=== PATIENT | female | born 1960 | race Caucasian/White ===

== ENCOUNTER → 2019-10-21 14:12 | Outpatient (BNVA) | payer BC, SELFPAY | PROVIDERS: Family Provider Family Medicine; PCP Family Medicine; Visit Provider Nurse Practitioner Family | DX: Z11.59 Encounter for screening for other viral diseases (principal) | CPT/HCPCS: 87635 ==

== ENCOUNTER → 2020-01-21 11:20 | Outpatient (BNVA) | payer OTHER, BC, SELFPAY | PROVIDERS: Family Provider Family Medicine; PCP Family Medicine; Visit Provider Nurse Practitioner Family | DX: Z11.59 Encounter for screening for other viral diseases (principal) | CPT/HCPCS: 87635 ==

== ENCOUNTER 2020-02-19 11:06 | Outpatient (CLI) | payer BC, SELFPAY ==
--- NOTE | 2020-02-19 11:11 | MM_ITS ---
WS: [id number] BILATERAL DIGITAL SCREENING MAMMOGRAM WITH CAD CLINICAL INFORMATION: SCREENING HISTORY: Screening mammogram. No current complaints. COMPARISON: January 07, 2019 TECHNIQUE: Bilateral CC and MLO. Spot compression views upper outer right breast. FINDINGS: Bilateral breast implants. Breast implants are mammographically intact. The breast are composed of extremely dense tissue, which can limit the detection of small underlying mass lesions. Spot compression views upper outer right breast are normal. No suspicious focal mass, a symmetry, calcifications, or architectural distortion. No evidence of malignancy. MM/[id number] IMPRESSION: BI-RADS: 2-Benign FOLLOW UP: 1 Year Follow-up Recommend return to annual screening mammography.
== END 2020-02-19 11:07 | disposition home or self-care (01) ==
LOC: RADSHAW 11:10
PROVIDERS: Family Provider Family Medicine; PCP Family Medicine; Visit Provider Obstetrics & Gynecology
DX: Z12.31 Encounter for screening mammogram for malignant neoplasm of breast (principal)
CPT/HCPCS: 77067

== ENCOUNTER → 2021-03-21 14:33 | Outpatient (BNVA) | payer BC, SELFPAY | PROVIDERS: Family Provider Family Medicine; PCP Family Medicine; Visit Provider Obstetrics & Gynecology | DX: R30.0 Dysuria (principal) | CPT/HCPCS: 81000 ==

== ENCOUNTER → 2021-03-28 09:00 | Outpatient (BNVA) | payer BC, SELFPAY | PROVIDERS: Family Provider Family Medicine; PCP Family Medicine; Visit Provider Obstetrics & Gynecology | DX: Z00.00 Encounter for general adult medical examination without abnormal findings (principal); Z12.4 Encounter for screening for malignant neoplasm of cervix | CPT/HCPCS: 80061; 83036; 84443; 87624 ==

== ENCOUNTER → 2021-03-29 14:39 | Outpatient (BNVA) | payer BC, SELFPAY | PROVIDERS: Family Provider Family Medicine; PCP Family Medicine; Visit Provider Obstetrics & Gynecology | DX: Z00.00 Encounter for general adult medical examination without abnormal findings (principal); R79.89 Other specified abnormal findings of blood chemistry | CPT/HCPCS: 84439; 84481 ==

== ENCOUNTER 2021-07-04 13:28 | Outpatient (CLI) | payer BC, SELFPAY ==
--- NOTE | 2021-07-04 13:35 | MM_ITS ---
WS: [id number] VIEWS: MLO and CC views both breasts. Breast implant displacement MLO and CC views also obtained.. 3 D digital tomosynthesis is also included in this exam. Comparison made with prior exam of 11/09/2015, 11/10/2016, 12/11/2017, 01/07/2019, and 02/19/2020.. Findings: There was no sign of mass, architectural distortion or suspicious calcification in either breast. Damien ateral breast implants are stable in appearance The breasts are very dense MM/[place] [id number] Impression: BI-RADS: 2-Benign FOLLOW-UP: 1 Year Follow-up This mammogram was also analyzed by the Computer Aided Detection System [employer].
== END 2021-07-04 13:29 | disposition home or self-care (01) ==
LOC: RADSHAW 13:30
PROVIDERS: PCP Family Medicine; Visit Provider Obstetrics & Gynecology
DX: Z12.31 Encounter for screening mammogram for malignant neoplasm of breast (principal)
CPT/HCPCS: 77063; 77067

== ENCOUNTER → 2021-07-22 07:42 | Outpatient (BNVA) | payer BC, SELFPAY | PROVIDERS: PCP Family Medicine; Visit Provider Family Medicine | DX: R79.89 Other specified abnormal findings of blood chemistry (principal); D58.2 Other hemoglobinopathies | CPT/HCPCS: 83036; 84443 ==

== ENCOUNTER 2021-09-07 05:47 | Day surgery (SDC) | payer BC, SELFPAY ==
[2021-09-05 17:38] VITALS: BMI 18.1
[2021-09-07 06:10] VITALS: BP 116/73; PULSE 80; RESP 18; TEMP 36.8; O2SAT 99
[2021-09-07] MEDS: sodium chloride 0.9% 1,000 ML 30 ML IV (06:26)
--- NOTE | 2021-09-07 06:55 | ANES.PREANE2 ---
Documented by User: Marvin Moss Jr, CHOPPED STRAND OPERATOR 09/07/21 06:58 Pre-Anesthetic Assessment Height/Weight: Height 1.66 m Weight 50.349 kg Temp Pulse Resp BP Pulse Ox 98.2 F 80 18 116/73 99 09/07/21 06:10 09/07/21 06:10 09/07/21 06:10 09/07/21 06:10 09/07/21 06:10 Preop Diagnosis: diagnostic Operation Date: 09/07/21 07:00 Proposed Procedures p Colonoscopy 40340/z12.11(Not Applicable) - Shaun Rivero MD Familial anesthetic complications: none Was Beta Nayla taken within 24 hours: N/A Was Clonidine taken within 24 hours: N/A Last intake: Intake Last Liquid Date 09/06/21 Last Liquid Time 23:50 Last Solid Date 09/05/21 Last Solid Time 21:30 Last Intake: 23:30 Social No alcohol and No tobacco Exam alert, oriented x 3, clear to auscultation bilaterally and regular rate & rhythm Airway Submandibular: within normal limits Cervical ROM: within normal limits Mallampati: Class I Dentition: full Pulmonary None reported CV/HEM None reported None reported Hepatic None reported GI None reported Metabolic None reported Musc/skel Lower Back Pain, Osteoarthritis/DJD and Scoliosis Neuropsych None reported Anesthetic Plan ASA status: 1 Anesthesia: MAC Risk of > 500 ml blood loss (7ml/kg in children): No Medications/Allergies Home Medications Medication Instructions Recorded Confirmed Last Taken Type vitamin d3, calcium, magnesium, 2 tab PO DAILY 03/08/20 09/07/21 09/05/21 History vitamin c conjugated estrogens 0.625 mg/gram 0.625 mg VAGINAL .COMPLEX #30 g 08/10/21 09/07/21 09/05/21 Rx vaginal cream (Premarin) fluticasone propionate 50 1 spray INTRANASAL DAILY 08/10/21 09/07/21 09/06/21 History mcg/actuation nasal spray,suspension (Flonase Allergy Relief) Allergies Allergy/AdvReac Type Severity Reaction Status Date / Time No Known Allergies Allergy Verified 09/07/21 06:06 Current Medications Generic Name Dose Route Start Last Admin Trade Name Freq PRN Reason Stop Dose Admin Sodium Chloride 1,000 mls @ 30 mls/hr 09/07/21 06:00 09/07/21 06:26 Sodium Chloride 0.9% IV 09/08/21 05:59 30 mls/hr .Q24H FARNAZ Administration PFSH Anesthesia Medical History No pertinent past medical history Denies diabetes, asthma, hypertension, seizures, DVT/PE PCP: Dr. Funk Surgical History (Updated 09/07/21 @ 07:26 by Shaun Rivero MD) History of back surgery buldging disc---April 2016----in [facility]. History of colonoscopy (09/07/21) normal - 10 years S/P breast augmentation Saline in 2009 S/P LEEP Done for abnormal Pap smear in 2006. Family History Mother Hyperlipidemia Grandfather Diabetes paternal Hypertension paternal Grandmother Stroke paternal Denies family history of Colon cancer Ovarian cancer Heart disease Breast cancer Uterine cancer Thyroid condition Data Anesthesia Cardiac Studies: No Data to Display
--- NOTE | 2021-09-07 07:08 | P.HP_ITS ---
Same Day Surgery H&P Indication for Procedure/HPI DATE OF PROCEDURE: September 07, 2021 CHIEF COMPLAINT/INDICATIONFOR SURGICAL PROCEDURE: colonoscopy PREOP DIAGNOSIS: diagnostic PLANNED PROCEDURE: Operation Date: 09/07/21 07:00 Proposed Procedures p Colonoscopy 40295/z12.11(Not Applicable) - Shaun Rivero MD Medications/Allergies* Home Medications Medication Instructions Recorded Confirmed Type vitamin d3, calcium, magnesium, 2 tab PO DAILY 03/08/20 09/07/21 History vitamin c fluticasone propionate 50 1 spray INTRANASAL DAILY 08/10/21 09/07/21 History mcg/actuation nasal spray,suspension (Flonase Allergy Relief) Allergies/Adverse Reactions Allergy/AdvReac Type Severity Reaction Status Date / Time No Known Allergies Allergy Verified 09/07/21 06:06 Current Medications: Generic Name Dose Route Start Last Admin Trade Name Freq PRN Reason Stop Dose Admin Sodium Chloride 1,000 mls @ 30 mls/hr 09/07/21 06:00 09/07/21 06:26 Sodium Chloride 0.9% IV 09/08/21 05:59 30 mls/hr .Q24H FARNAZ Administration Pertinent History/Comorbid Conditions* Medical History (Updated 04/01/21 @ 09:59 by Josephine Marcelo MD) No pertinent past medical history Denies diabetes, asthma, hypertension, seizures, DVT/PE PCP: Dr. Funk Surgical History (Updated 07/05/21 @ 11:22 by Shaun Rivero MD) History of back surgery buldging disc---April 2016----in [facility]. History of colonoscopy S/P breast augmentation Saline in 2009 S/P LEEP Done for abnormal Pap smear in 2006. Family History (Updated 03/28/21 @ 08:01 by Noelle Oro RN) Diabetes Grandfather paternal Hyperlipidemia Mother Hypertension Grandfather paternal Stroke Grandmother paternal Denies family history of Colon cancer Ovarian cancer Heart disease Breast cancer Uterine cancer Thyroid condition Pertinent Exam Findings alert, oriented x 3 and regular rate & rhythm Recommendations Surgery/Procedure today Coding Level of Care Code Acute Cardiology Nurse for Chg Janusz
[2021-09-07 07:31] VITALS: BP 90/42; PULSE 66; RESP 18; TEMP 36.5; O2SAT 99
[2021-09-07 07:40] VITALS: BP 108/64; PULSE 66; RESP 18; O2SAT 100
--- NOTE | 2021-09-07 12:16 | ANE.PACU2 ---
Inpatient post-anesthesia follow up: Airway intact: Yes Vital signs: Temperature 97.7 F Pulse Rate 66 Respiratory Rate 18 Blood Pressure 108/64 Pulse Oximetry 100 Oxygen Delivery Me thod Room Air Oxygen Flow Rate 4 Fraction of Inspir ed Oxygen Hydration adequate: Yes Nausea and vomiting: No Pain level: 1 Mental status: Baseline
== END 2021-09-07 08:04 | disposition home or self-care (01) ==
PROVIDERS: PCP Family Medicine; Visit Provider Surgery
PROC: 0DJD8ZZ Inspection of Lower Intestinal Tract, Via Natural or Artificial Opening Endoscopic (ICD-10-PCS; CPT 45378; principal; 2021-09-07 07:00)
DX: Z12.11 Encounter for screening for malignant neoplasm of colon (principal); K64.8 Other hemorrhoids; M19.90 Unspecified osteoarthritis, unspecified site
CPT/HCPCS: 45378; J2704; J7030

== ENCOUNTER → 2022-05-22 08:20 | Outpatient (BNVA) | payer BC, SELFPAY | PROVIDERS: PCP Family Medicine; Visit Provider Obstetrics & Gynecology | DX: Z00.00 Encounter for general adult medical examination without abnormal findings (principal); Z79.899 Other long term (current) drug therapy | CPT/HCPCS: 80053; 80061; 82465; 83036; 83721; 84443; 85025 ==

== ENCOUNTER 2022-07-12 12:54 | Outpatient (CLI) | payer BC, SELFPAY ==
--- NOTE | 2022-07-12 13:04 | MM_ITS ---
WS: [id number] BILATERAL 3D TOMOSYNTHESIS DIGITAL SCREENING MAMMOGRAPHY WITH CAD CLINICAL INFORMATION: SCREENING HISTORY: Screening mammogram. No current complaints. COMPARISON: July 04, 2021 TECHNIQUE: Bilateral CC and MLO views. FINDINGS: Bilateral breast implants appear intact. The breasts are composed of heterogeneous fibroglandular density tissue, which can limit the detectio n of small underlying mass lesions. No suspicious mass, asymmetry, calcifications, or architectural d istortion. No evidence of malignancy. Coarse punctate calcification RIGHT breast. MM/[place] [id number] IMPRESSION: BI-RADS: 2-Benign FOLLOW UP: 1 Year Follow-up Recommend return to annual screening mammography.
== END 2022-07-12 12:55 | disposition home or self-care (01) ==
LOC: RAD 12:58
PROVIDERS: PCP Family Medicine; Visit Provider Obstetrics & Gynecology
DX: Z12.31 Encounter for screening mammogram for malignant neoplasm of breast (principal)
CPT/HCPCS: 77063; 77067

== ENCOUNTER → 2023-06-29 15:05 | Outpatient (BNVA) | payer OTHER, SELFPAY | PROVIDERS: Visit Provider Nurse Practitioner Women's Health | DX: R30.0 Dysuria (principal) | CPT/HCPCS: 84315; 87077; 87086; 87184 ==

== ENCOUNTER 2023-07-16 12:46 | Outpatient (CLI) | payer OTHER, SELFPAY ==
--- NOTE | 2023-07-16 13:00 | XR_ITS ---
WS: [id number] DEXA (DUAL ENERGY X-RAY ABSORPTIOMETRY) Bone mineral density was performed using a [employer] machine. HISTORY: Z78.0 - Asymptomatic menopausal state COMPARISON: None available. Lumbar spine BMD (L1-L4): 1.016 g/cm2 T score: -1.4 Z score: 0.4 Total hip BMD: Left: 0.723 g/cm2. T score: -2.3 Z score: -1.0 Right: 0.757 g/cm2. T score: -2.0 Z score: -0.7 10 year probability of a major osteoporotic fracture is 32.3%. XR/XR DEXA axial skeleton* [id number] IMPRESSION: OSTEOPENIA based upon the WHO classification for females.
--- NOTE | 2023-07-16 13:30 | MM_ITS ---
WS: [id number] BILATERAL SCREENING DIGITAL BREAST MAMMOGRAPHY WITH AMBER DISPLACEMENT VIEWS. CAD PERFORMED. HISTORY: Z12.39 - Encounter for other screening for malignant neop... COMPARISON: 07/12/2022, 07/04/2021 Bilateral craniocaudal and mediolateral oblique views are performed with tomosynthesis and SM. Amber displacement views in CC and MLO projection also performed. Breasts composition: The breasts are extremely dense, which lowers the sensitivity of mammography. I mplants are intact. Very dense fibroglandular breast tissue. No mass or distortion. No developing manohar cifications. Benign calcification 6:00 posterior RIGHT breast. MM/[place] [id number] IMPRESSION: BI-RADS: 2-Benign FOLLOW-UP: 1 Year Follow-up
== END 2023-07-16 12:47 | disposition home or self-care (01) ==
LOC: RAD 12:47
PROVIDERS: PCP Family Medicine; Visit Provider Nurse Practitioner Women's Health
DX: Z12.31 Encounter for screening mammogram for malignant neoplasm of breast (principal); Z13.820 Encounter for screening for osteoporosis; Z78.0 Asymptomatic menopausal state; R92.323 Mammographic fibroglandular density, bilateral breasts; M85.80 Other specified disorders of bone density and structure, unspecified site
CPT/HCPCS: 77063; 77067; 77080

== ENCOUNTER → 2023-07-20 08:05 | Outpatient (BNVA) | payer OTHER, SELFPAY | PROVIDERS: PCP Family Medicine; Visit Provider Family Medicine | DX: Z13.29 Encounter for screening for other suspected endocrine disorder (principal); Z13.6 Encounter for screening for cardiovascular disorders; M85.80 Other specified disorders of bone density and structure, unspecified site; Z78.0 Asymptomatic menopausal state; Z13.0 Encounter for screening for diseases of the blood and blood-forming organs and certain disorders involving the immune mechanism; Z78.9 Other specified health status; Z13.228 Encounter for screening for other metabolic disorders; Z13.220 Encounter for screening for lipoid disorders; Z13.1 Encounter for screening for diabetes mellitus | CPT/HCPCS: 80053; 80061; 82172; 82306; 83036; 83695; 84439; 84443; 85025; 86787 ==

== ENCOUNTER → 2024-01-11 11:57 | Outpatient (BNVA) | payer OTHER, SELFPAY | PROVIDERS: PCP Family Medicine; Visit Provider Family Medicine | DX: E03.8 Other specified hypothyroidism (principal); M85.80 Other specified disorders of bone density and structure, unspecified site; Z78.0 Asymptomatic menopausal state | CPT/HCPCS: 82310; 83970; 84439; 84481 ==

== ENCOUNTER → 2024-04-14 08:35 | Outpatient (BNVA) | payer OTHER, SELFPAY | PROVIDERS: PCP Family Medicine; Visit Provider Family Medicine | DX: E78.5 Hyperlipidemia, unspecified (principal); E03.8 Other specified hypothyroidism; R79.89 Other specified abnormal findings of blood chemistry; N95.1 Menopausal and female climacteric states; M85.80 Other specified disorders of bone density and structure, unspecified site; Z79.890 Hormone replacement therapy; Z71.89 Other specified counseling | CPT/HCPCS: 80053; 80061; 82306; 82670; 84439; 84443 ==

== ENCOUNTER 2024-07-25 12:33 | Outpatient (CLI) | payer OTHER, SELFPAY ==
--- NOTE | 2024-07-25 12:40 | MM_ITS ---
WS: [id number] BILATERAL 3D TOMOSYNTHESIS DIGITAL SCREENING MAMMOGRAPHY WITH CAD CLINICAL INFORMATION: Z12.31 - Encounter for screening mammogram for malignant ... HISTORY: Screening mammogram. No current complaints. COMPARISON: 2021 TECHNIQUE: Bilateral CC and MLO views. FINDINGS: Breast implants appear intact The breasts are composed of heterogeneous fibroglandular density tissue, which can limit the detection of small underlying mass lesions. No suspicious mass, asymmetry, calcifications, or architectural distortion. No evidence of malignancy. Benign calcification RIGHT breast. MM/MM [facility] tomosynthesis [id number] IMPRESSION: DENSITY: The breasts are heterogeneously dense, which may obscure small masses. BI-RADS: 2 - Benign FOLLOW UP: 1 Year Follow-up Recommend return to annual screening mammography.
--- NOTE | 2024-07-25 13:00 | XR_ITS ---
WS: [id number] DEXA (DUAL ENERGY X-RAY ABSORPTIOMETRY) Bone mineral density was performed using a [employer] machine. HISTORY: M85.80 - Other specified disorders of bone density and st... COMPARISON: 07/16/2023 Lumbar spine BMD (L1-L4): 1.061 g/cm2 T score: -1.0 Z score: 0.9 Total hip BMD: Left: 0.735 g/cm2. T score: -2.2 Z score: -0.8 Right: 0.786 g/cm2. T score: -1.8 Z score: -0.4 10 year probability of a major osteoporotic fracture is 17.8%. Compared to the prior study from 07/16/2023. Lumbar spine bone mineral density has increased by 4.4%. Bilateral hips bone mineral density has increased by 2.7%. XR/XR DEXA axial skeleton* [id number] IMPRESSION: OSTEOPENIA based upon the WHO classification for females. Significant increase in bone mineral density within the lumbar spine and hips s jarocho the prior study.
== END 2024-07-25 12:34 | disposition home or self-care (01) ==
PROVIDERS: PCP Family Medicine; Visit Provider Nurse Practitioner Women's Health
DX: Z12.31 Encounter for screening mammogram for malignant neoplasm of breast (principal); M85.80 Other specified disorders of bone density and structure, unspecified site; Z78.0 Asymptomatic menopausal state; Z98.82 Breast implant status; R92.333 Mammographic heterogeneous density, bilateral breasts; R92.1 Mammographic calcification found on diagnostic imaging of breast
CPT/HCPCS: 77063; 77067; 77080